=== PATIENT | female | born 1970 | race Caucasian/White ===

== ENCOUNTER 2017-08-20 17:49 | Emergency (ER) | payer OTHER, BC ==
[~2017-08-20] VITALS: Ht 170.2 cm; Wt 63.1 kg
[~2017-08-20 17:49] MED LIST: CITA10TA8 PO; FLNIN NAE; NUTR-218 PO
[2017-08-20 18:04] VITALS: BP 128/79; PULSE 63; TEMP 37.4; O2SAT 97; Ht 170.2 cm; Wt 63.1 kg
[2017-08-20] MEDS ORDERED: RABIES VACCINE (IMOVAX) HUMAN DIPL CELL 2.5 INTER.UNIT/ML SYR IM. ONE (18:15)
--- NOTE | 2017-08-20 19:00 | EMERGENCY ROOM VISIT NOTE ---
History Report prepared by Garry: Mac Cobos Under the Supervision of: Dr. John Lerner M.D. First contact with patient: 18:08 Chief Complaint: RABIES VACCINE Stated Complaint: EXPORSURE TO RABID CAT, HAS PRE-EXPOSURE TITER History of Present Illness The patient is a 47 year old female who presents to the Emergency Room with a request for a rabies vaccination. 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 Today, she was working with a feral cat who was about to be adopted when she noticed that the cat was acting very strangely. She believed that the cat was suffering from symptoms of rabies. Upon euthanatizing the cat, it being rolling around and ended up scratching the patient. She has received a three series rabies vaccination in the past, but presents today to make sure she is immunized. Source of History: patient Onset: today Position: arm (bilateral) Symptom Intensity: mild Quality: other (Cat scratches) Timing: constant Note: She denies any other abnormal symptoms. Review of Systems See HPI for pertinent positives & negatives. A total of 10 systems reviewed and were otherwise negative. Past Medical & Surgical Medical Problems: (1) Anxiety (2) S/P Maxillary surgery air way observation Family History Cancer Diabetes mellitus FH: heart disease Hypertension Social History Smoking Status: Never Smoker Smokeless Tobacco Use: No Drug Use: none Marital Status: Housing Status: lives with family Occupation Status: employed Current/Historical Medications Scheduled Citalopram Hydrobromide (Celexa), 15 MG PO QAM Fluticasone Propionate (Flonase Nasal [place] *), 1 SPRAY RENATE QAM Loratadine (Claritin), 10 MG PO QAM Allergies Coded Allergies: Amoxicillin (Verified Allergy, Unknown, HIVES ,SOB - TOLERATES PCN, ) CAN TAKE AMOXICILLIN AND 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 Clavulanic Acid (Verified Allergy, Unknown, SOB, HIVES, 08/20/17) Nickel (Verified Allergy, Unknown, RASH, IRRIATATION, 08/20/17) POLLEN (Verified Allergy, Unknown, HAYFEVER, 08/20/17) Rofecoxib (Verified Allergy, Unknown, HIVES, 08/20/17) Physical Exam Vital Signs Date Time Temp Pulse Resp B/P (MAP) Pulse Ox O2 Delivery O2 Flow Rate FiO2 08/20/17 18:04 37.4 63 18 128/79 97 Room Air Physical Exam GENERAL: Patient is a healthy-appearing well-nourished female HEAD: Normocephalic atraumatic EYES: Ocular movements intact pupils equal and react to light OROPHARYNX mucous membranes are moist no exudates present no erythema or edema present NECK: Supple no nuchal rigidity CHEST: Good equal expansion LUNGS: Clear and equal to auscultation CARDIAC: Normal S1 and S2 ABDOMEN: Soft nontender no guarding BACK: No CVA tenderness EXTREMITIES: No pain upon palpation normal muscle strength in all groups no clubbing cyanosis or edema NEURO: Patient is following commands and answering questions appropriately. Alert and oriented x3 Cranial Nerves 2-12 grossly intact Medical Decision & Procedures Medications Administered Medications (Trade) Dose Ordered Sig/Carlos Route Start Time Stop Time Status Last Admin Dose Admin Rabies Vaccine Human Diploid Cell (Imovax Rabies) 2.5 interunit ONCE ONCE IM. 08/20/17 18:15 08/20/17 18:16 DC 08/20/17 18:34 2.5 INTERUNIT ED Course 1807: Past medical records reviewed. The patient was evaluated in room A6. A complete history and physical examination was performed. 1814: Ordered Imovax Rabies 2.5 interunit IM 1830: Upon reexamination the patient is resting. I discussed results and treatment plan with the patient. She verbalizes agreement and understanding. The patient is ready for discharge. Medical Decision This is a 47-year-old female who presents emergency department after being scratched by a rabid cat. The wound was cleaned with soap and water. She was given Rabies Vaccine. She already has a rabies titer drawn that is appropriate. For this reason she will only need the rabies vaccine on days 0 and 3. Patient will return on day 3 and was in agreement with the treatment plan. Medication Reconcilliation Current Medication List: was personally reviewed by me Blood Pressure Screening Patient's blood pressure: Normal blood pressure Blood pressure disposition: Did not require urgent referral Impression Primary Impression: Need for rabies vaccination Scribe Attestation The scribe's documentation has been prepared under my direction and personally reviewed by me in its entirety. I confirm that the note above accurately reflects all work, treatment, procedures, and medical decision making performed by me. Departure Information Dispostion Home / Self-Care Referrals Rd Calixto MD (PCP) Forms WORK / SCHOOL INSTRUCTIONS, HOME CARE DOCUMENTATION FORM, IMPORTANT VISIT INFORMATION Patient Instructions My [facility] Additional Instructions Today is Day 0, Return on Day 3 for additional Vaccine
[2017-08-23] MEDS ORDERED: LORA10CA2 PO (13:53)
== END 2017-08-20 18:39 | disposition home or self-care (01) ==
LOC: C.EDB 17:50 → C.EDA 18:39
DX: Z23 Encounter for immunization (principal); Z20.3 Contact with and (suspected) exposure to rabies; Y92.89 Other specified places as the place of occurrence of the external cause; Y99.0 Civilian activity done for income or pay; F41.9 Anxiety disorder, unspecified; Z79.899 Other long term (current) drug therapy; Z88.1 Allergy status to other antibiotic agents; Z88.8 Allergy status to other drugs, medicaments and biological substances; Z91.09 Other allergy status, other than to drugs and biological substances; Z80.9 Family history of malignant neoplasm, unspecified; Z83.3 Family history of diabetes mellitus; Z82.49 Family history of ischemic heart disease and other diseases of the circulatory system

== ENCOUNTER 2017-08-23 17:03 | Emergency (ER) | payer OTHER, BC ==
[~2017-08-23] VITALS: Ht 170.2 cm; Wt 62.1 kg
[~2017-08-23 17:03] MED LIST changes: +LORA10CA2 PO
[2017-08-23 17:06] VITALS: TEMP 36.7; Ht 170.2 cm; Wt 62.1 kg
--- NOTE | 2017-08-23 17:11 | EMERGENCY ROOM VISIT NOTE ---
ED Visit Note First contact with patient: 17:09 Chief Complaint: Rabies Return Visit History of Present Illness: This patient is a 47-year-old female who presents to the Emergency Department for their final Rabies Vaccination Injections. The patient reports that they had no reaction to previous injection. Patient denies the development of any fevers, chills, sweats, or URI symptoms. Medications: Unchanged from previous visit. Allergies: Reviewed in chart PMH: Unchanged from previous visit. SHx: Lives at home. She denies tobacco use. ROS: All pertinent positive and negative review of systems are appropriately documented in the History of Present Illness. Physical Exam: VITAL SIGNS - Vital signs and Nursing Notes were reviewed. GENERAL - Pleasant and cooperative, well-developed, well-nourished, and in no acute distress. SKIN - Without rashes or lesions. CARDIAC - RRR with normal S1 & S2. No murmurs, rubs, or gallops appreciated. RESPIRATORY - Clear to auscultation bilaterally. No wheezes, rales, or rhonchi appreciated. NEURO - Patient is A&Ox3 and communicates appropriately with the provider. ED Course: Previous ED visit note was reviewed by myself prior to patient evaluation. Patient reports no reaction to the previous injection(s). Patient received Imovax intramuscularly. Patient was observed in the Emergency Department for greater than 20 minutes prior to discharge without signs of reaction. Patient was educated on worrisome symptoms for return visit to the Emergency Department. Patient discharged to home with the intent for follow-up in the Emergency Department as scheduled for the remainder of their injections. 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 Clavulanic Acid (Verified Allergy, Unknown, SOB, HIVES, 08/20/17) Nickel (Verified Allergy, Unknown, RASH, IRRIATATION, 08/20/17) POLLEN (Verified Allergy, Unknown, HAYFEVER, 08/20/17) Rofecoxib (Verified Allergy, Unknown, HIVES, 08/20/17) Vital Signs Date Time Temp Pulse Resp B/P (MAP) Pulse Ox O2 Delivery O2 Flow Rate FiO2 08/23/17 17:47 60 16 126/82 94 Room Air 08/23/17 17:06 36.7 85 20 121/81 98 Room Air Medications Administered Medications (Trade) Dose Ordered Sig/Carlos Route Start Time Stop Time Status Last Admin Dose Admin Rabies Vaccine Human Diploid Cell (Imovax Rabies) 2.5 interunit ONCE ONCE IM. 08/23/17 17:30 08/23/17 17:31 DC 08/23/17 17:25 2.5 INTERUNIT Departure Information Impression Primary Impression: Encounter for repeat administration of rabies vaccination Dispostion Home / Self-Care Condition GOOD Referrals Rd Calixto MD (PCP) Patient Instructions My [facility] Additional Instructions You were seen in the Emergency Department today for your final Rabies Prophylaxis injection. Follow-up with your PCP as needed.
[2017-08-23] MEDS ORDERED: RABIES VACCINE (IMOVAX) HUMAN DIPL CELL 2.5 INTER.UNIT/ML SYR IM. ONE (17:30)
[2017-08-23] MEDS ORDERED: FLNIN/ NAE (17:37)
[2017-08-23] MEDS ORDERED: CITA10TA4 PO (17:37)
[2017-08-23 17:47] VITALS: BP 126/82; PULSE 60; O2SAT 94
== END 2017-08-23 17:59 | disposition home or self-care (01) ==
LOC: C.EDB 17:04 → C.EDD 17:59
DX: Z20.3 Contact with and (suspected) exposure to rabies (principal); Z23 Encounter for immunization; F41.9 Anxiety disorder, unspecified

== ENCOUNTER → 2017-10-25 | Outpatient (CLI) | payer BC ==
[~2017-10-25] MED LIST changes: +CITA10TA4 PO; -CITA10TA8 PO; -FLNIN NAE; +FLNIN/ NAE; -NUTR-218 PO
== END | disposition home or self-care (01) ==
LOC: C.LAB 18:45
PROVIDERS: ATTEND Orthopaedic Surgery
DX: S60.478A Other superficial bite of other finger, initial encounter (principal); W55.01XA Bitten by cat, initial encounter